=== PATIENT | female | born 1980 | race Hispanic/Latino ===

== ENCOUNTER 2025-02-06 21:57 | Emergency (ER) | payer BC ==
[~2025-02-06] VITALS: Ht 149.9 cm; Wt 77.6 kg
--- NOTE | 2025-02-06 22:09 | ERN ---
ED Note History of Present Illness Stated Complaint: C/O PAIN TO LEFT ARM, LEFT SHOULDER, BACK PAIN patient comes to the ED. because over that has last week. Since Monday. She has been having this rash on her left back shoulder and on her left arm. It is a vesicular rash. That has very painful to her she denies any chest pain or shortness of breath she had already went to [facility]. Where she said she had got an x- rays and ultrasounds. That has were normal withinnormal limits she has stilleen ableto use her arm since then Chief Complaint: Arm Swelling/Redness Time Seen by MD: 21:59 Allergies: Coded Allergies: Penicillins (Unverified Allergy, Unknown, 02/06/25) Past Medical History Past Medical History: Hypertension Surgical History: Cholecystectomy LMP: Jan 30, 2025 Review of System Dictation Constitutional: Negative for fever,chills, and weight loss Eyes: Negative for injury, pain,redness, and discharge ENT: Negative for injury,pain or swelling Cardiovascular: Negative for chest pain, palpitations, and edema Respiratory: Negative for shortness of breath, cough, and wheezing, Abdomen/GI: Negative for abdominal pain, nausea, vomiting, diarrhea, and constipation Back: Negative for injury and pain : Negative for injury, bleeding and discharge MS/Extremity: Negative for injury and deformity Skin: Negative for rash, and discoloration Neuro: Negative for headache, weakness, numbness, tingling, and seizure Psych: Negative for suicide ideation, homicidal ideation, and hallucinations Rash arm pain Initial Vital Sign VS Vital Signs Date Time Temp Pulse Resp B/P (MAP) Pulse Ox O2 Delivery O2 Flow Rate FiO2 02/06/25 22:00 98.2 108 20 140/94 98 Room Air Physical Exam Dictation General: awake, alert, NAD Head/Face: Normocephalic, atraumatic Eyes: PERRL, EOMI, vision at baseline ENT: oral cavity clear, TMs clear, no signs of infection Neck: Trachea midline, supple, no nuchal rigidity Cardiovascular: RRR, normal S1/S2, No MRGs, no JVD Respiratory: CTAB, no respiratory distress, No rales or wheezes Abdomen: Soft, non-tender, non-distended, normal bowel sounds, no guarding or rebound. Skin: Warm, dry, normal turgor, no rash MS/Extremity: Pulses equal, no cyanosis, neurovascular intact, FROM Neuro: COAx4, GCS 15, strength 5/5, CN 2-12 intact, normal cerebellar exam, normal gait, Psych: Normal behavior, mood, and affect normal Patient does have full range of motion strength sensation. Of both arms. That has no swelling on either the wrist the forearm they the bicep. That has no erythema or purple or purulence. That has only vesicular rash. In the left anterior forearm. Also a 5 x 5 cm vesicular rash. That has left posterior upper chest she is nontoxic appearing no acute distress Results (Laboratory/Radiology) Laboratory/Radiology Laboratory Tests Test 02/06/25 22:36 White Blood Count 4.4 K/uL (4.8-10.8) L Red Blood Count 4.16 MIL/uL (4.00-5.50) Hemoglobin 12.4 g/dL (12.0-16.0) Hematocrit 35.6 % (36-48) L Mean Corpuscular Volume 85.6 fL (79-99) Mean Corpuscular Hemoglobin 29.8 pg (27.0-33.0) Mean Corpuscular Hemoglobin Concent 34.8 g/dL (32.0-36.0) Red Cell Distribution Width 12.2 % (11.0-15.5) Platelet Count 210 K/uL (130-400) Mean Platelet Volume 10.6 fL (7.5-10.5) H Immature Granulocyte % (Auto) 0.2 % (0-1) Neutrophils (%) (Auto) 62.3 % (40.0-77.0) Lymphocytes (%) (Auto) 22.3 % (21.0-51.0) Monocytes (%) (Auto) 11.3 % (3.0-13.0) Eosinophils (%) (Auto) 3.2 % (0.0-8.0) Basophils (%) (Auto) 0.7 % (0.0-5.0) Neutrophils # (Auto) 2.7 K/uL (1.8-7.7) Lymphocytes # (Auto) 1.0 K/uL (1.0-4.8) Monocytes # (Auto) 0.5 K/uL (0.1-1.0) Eosinophils # (Auto) 0.14 K/uL (0.00-0.70) Basophils # (Auto) 0.03 K/uL (0.00-0.20) Absolute Immature Granulocyte (auto 0.01 K/uL (0-1) Nucleated Red Blood Cells 0.0 % (0.0-0.19) Troponin I High Sensitivity 6 ng/L (4-50) ED Course ED Course Orders Procedure Category Date Status Time Cbc With Differential LAB 02/06/25 Complete 22:04 Chest 1vw RAD 02/06/25 Taken 22:04 Morphine 4mg Syg PHA 02/06/25 Complete (Morphine 4mg Syg) 22:30 Ondansetron 4mg Inj PHA 02/06/25 Complete (Zofran 4mg Inj) 22:30 Troponin I High LAB 02/06/25 Complete Sensitivity 22:04 Basic Metabolic Panel LAB 02/06/25 In Process 22:04 12 Lead Ekg Tracing- EKG 02/06/25 Logged Technical 22:09 Current Medications Medications (Trade) Dose Ordered Sig/Leticia Route PRN Reason Start Time Stop Time Status Last Admin Dose Admin Morphine Sulfate (morPHINE 4MG SYG) 4 mg ONCE ONCE IVP 02/06/25 22:30 02/06/25 22:31 DC 02/06/25 22:56 Ondansetron HCl (zoFRAN 4MG INJ) 4 mg ONCE ONCE IVP 02/06/25 22:30 02/06/25 22:31 DC 02/06/25 22:56 Vital Signs Date Time Temp Pulse Resp B/P (MAP) Pulse Ox O2 Delivery O2 Flow Rate FiO2 02/06/25 22:00 98.2 108 20 140/94 98 Room Air Medical Decision Making MDM MDM: Differential diagnosis: Rationale: Tests considered and ordered secondary to shared decision making include: Previous outside records reviewed: Old ER visits. Risk of complication and/or morbidity or mortality of patient management: None Medications-Per medication reconciliation Need for hospitalization: Patient does not meet criteria for hospitalization. Need for emergency major/minor surgery: No There are no social concerns with this patient. Prescription drug management Prescriptions will include symptomatic care Patient's prior external medical records from other ER visits were reviewed by me as indicated. Prior testing and results from previous visits were reviewed. Prior tests were taken into account with medical decision making and resource utilization, independent historian/historians were used to obtain complete medical history. I independently interpreted the test that were performed, results were reviewed by me and considered findings on radiology if ordered. Medical management and examination interpretation discussions were had by me with other qualified healthcare professionals as indicated for the patient's care. No clinical signs of DVT additionally patient also and that has last days had had ultrasound of her arm. And been worked up. Again additionally given this fascicular rash. And that has left dermatomal that has left upper back back and then on her left arm. That has consistent with that has zoster shingles. Patient says she has been under a lot of stressors in the I told him do some blood work make sure that has not cardiac abnormalities. And pain medications no signs of cellulitis either DX & DISP Disposition: Discharge Departure Impression: Primary Impression: Shingles Condition: Stable Scripts Prednisone (Prednisone) 10 Mg Tab.ds.pk 10 MG PO BID for 5 Days, #10 Prov: KEVIN ANN MD 02/06/25 Acyclovir (Acyclovir) 200 Mg Capsule 200 MG PO 5X/DAY for 5 Days, #25 CAP Prov: KEVIN ANN MD 02/06/25 KEVIN ANN MD Feb 06, 2025 22:09
[2025-02-06 22:57] LABS: IMMATURE GRANULOCYTE ABSOLUTE 0.01 K/uL (0-1); NUCLEATED RED BLOOD CELLS 0.0 % (0.0-0.19); PLATELET COUNT (AUTO) 210 K/uL (130-400); RED BLOOD CELL COUNT(AUTO) 4.16 MIL/uL (4.00-5.50); RED CELL DISTRIBUTION WIDTH 12.2 % (11.0-15.5); WHITE BLOOD COUNT (AUTO) 4.4 K/uL (4.8-10.8)
[2025-02-06] MEDS ORDERED: PRED10TA23 PO (23:21)
[2025-02-06] MEDS ORDERED: ACYC-61 PO (23:21)
[2025-02-06 23:22] LABS: CREATININE 0.6 mg/dL (0.5-1.0); GLOMERULAR FILTR. RATE CALC 113.0 mL/min (>90); GLUCOSE,RANDOM 119.0 mg/dL (70-105); SODIUM SERUM 134.0 mmol/L (136-145); UREA NITROGEN, BLOOD 13.0 mg/dL (7-18)
--- NOTE | 2025-02-06 23:22 | HMCIMG ---
EXAM: CR Chest, 1 view CLINICAL HISTORY: Pain. COMPARISON: None provided. FINDINGS: The lungs show no infiltrates or other acute findings. No pleural effusion or pneumothorax. The cardiomediastinal silhouette is within normal limits. No acute osseous abnormality. IMPRESSION: No acute cardiopulmonary process is evident. /[place]
[2025-02-06 23:33] VITALS: BP 132/56; PULSE 86; RESP 18; TEMP 98.6; O2SAT 99
--- NOTE | 2025-02-07 02:38 | EKG ---
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
== END 2025-02-06 23:40 | disposition home or self-care (01) ==
LOC: EDH 21:57
DX: B02.9 Zoster without complications (principal); I10 Essential (primary) hypertension; Z88.0 Allergy status to penicillin; Z90.49 Acquired absence of other specified parts of digestive tract
CPT/HCPCS: 99284; 96374; 71045; 96375; 84484; 80048; 85025; 36415; 93005; J2405; J2270

== ENCOUNTER 2025-02-25 10:09 | Emergency (ER) | payer BC ==
[~2025-02-25] VITALS: Ht 149.9 cm; Wt 76.7 kg
[~2025-02-25 10:09] MED LIST: ACYC-61 PO; PRED10TA23 PO
[2025-02-25 10:11] VITALS: TEMP 97.6
--- NOTE | 2025-02-25 10:25 | ERN ---
General Chief Complaint: Chest Pain Stated Complaint: CP Time Seen by MD: 10:14 Time Seen by Midlevel: 10:14 Source: patient History of Present Illness Initial Comments 45-year-old female who presents to the emergency department due to chest pain onset three days ago. Patient reports nausea but denies any shortness of breath, abdominal pain, headache, fevers or further associated symptoms. Patient reports she was seen here two weeks ago and diagnosed with shingles. Denies any rash or lesions to the chest/breast. PMHx HTN, TIA Allergies: Coded Allergies: Penicillins (Unverified Allergy, Unknown, 02/06/25) Home Meds Active Scripts Prednisone (Prednisone) 10 Mg Tab.ds.pk, 10 MG PO BID for 5 Days, #10 Prov:KEVIN ANN MD 02/06/25 Acyclovir (Acyclovir) 200 Mg Capsule, 200 MG PO 5X/DAY for 5 Days, #25 CAP Prov:KEVIN ANN MD 02/06/25 Past Medical History Past Medical History: CVA, Hypertension, Other Medical History Other: shingles Past Surgical History: Cholecystectomy ROS Dictation Constitutional: Negative for fever,chills, and weight loss Eyes: Negative for injury, pain,redness, and discharge ENT: Negative for injury,pain or swelling Cardiovascular: Positive chest pain Negative for palpitations, and edema Respiratory: Negative for shortness of breath, cough, and wheezing, Abdomen/GI: Positive for nausea Negative for abdominal pain, vomiting, diarrhea, and constipation Back: Negative for injury and pain : Negative for painful urination, bleeding or discharge MS/Extremity: Negative for injury and deformity Skin: Negative for rash, and discoloration Neuro: Negative for headache, weakness, numbness, tingling, and seizure Psych: Negative for suicide ideation, homicidal ideation, and hallucinations Physical Exam Physical Exam Dictation General: awake, alert, no acute distress Head/Face: Normocephalic, atraumatic Eyes: PERRL, EOMI, normal conjunctiva ENT: oral cavity clear, oral mucosa moist Neck: Supple, normal range of motion Cardiovascular: RRR, normal S1/S2 Respiratory: CTAB, no respiratory distress, no rales or wheezes Abdomen: Soft, non-tender, non-distended, no guarding or rebound. Skin: Warm, dry, normal turgor, mild rash noted on the medial aspect left arm and upper back consistent with healing shingles, no rash or lesions noted around the left breast/chest MS/Extremity: Pulses equal, no cyanosis, neurovascular intact, FROM Neuro: COAx4, GCS 15, strength 5/5, CN 2-12 intact, normal cerebellar exam, normal gait Psych: Normal behavior, mood, and affect normal Results Laboratory and Microbiology Lab and Micro Result Laboratory Tests Test 02/25/25 10:32 02/25/25 11:30 02/25/25 11:37 White Blood Count 6.3 K/uL (4.8-10.8) Red Blood Count 4.21 MIL/uL (4.00-5.50) Hemoglobin 12.5 g/dL (12.0-16.0) Hematocrit 37.0 % (36-48) Mean Corpuscular Volume 87.9 fL (79-99) Mean Corpuscular Hemoglobin 29.7 pg (27.0-33.0) Mean Corpuscular Hemoglobin Concent 33.8 g/dL (32.0-36.0) Red Cell Distribution Width 12.3 % (11.0-15.5) Platelet Count 254 K/uL (130-400) Mean Platelet Volume 10.2 fL (7.5-10.5) Immature Granulocyte % (Auto) 0.3 % (0-1) Neutrophils (%) (Auto) 54.1 % (40.0-77.0) Lymphocytes (%) (Auto) 33.0 % (21.0-51.0) Monocytes (%) (Auto) 9.1 % (3.0-13.0) Eosinophils (%) (Auto) 2.7 % (0.0-8.0) Basophils (%) (Auto) 0.8 % (0.0-5.0) Neutrophils # (Auto) 3.4 K/uL (1.8-7.7) Lymphocytes # (Auto) 2.1 K/uL (1.0-4.8) Monocytes # (Auto) 0.6 K/uL (0.1-1.0) Eosinophils # (Auto) 0.17 K/uL (0.00-0.70) Basophils # (Auto) 0.05 K/uL (0.00-0.20) Absolute Immature Granulocyte (auto 0.02 K/uL (0-1) Nucleated Red Blood Cells 0.0 % (0.0-0.19) Sodium Level 140 mmol/L (136-145) Potassium Level 3.4 mmol/L (3.5-5.1) L Chloride Level 103 mmol/L (101-111) Carbon Dioxide Level 28 mmol/L (21-32) Blood Urea Nitrogen 13 mg/dL (7-18) Creatinine 0.5 mg/dL (0.5-1.0) Glomerular Filtration Rate Calc 117 mL/min (>90) Random Glucose 120 mg/dL (70-105) H Total Calcium 8.4 mg/dL (8.5-10.1) L Troponin I High Sensitivity < 4 ng/L (4-50) L < 4 ng/L (4-50) L Urine Color LIGHT-YELLOW (YELLOW) Urine Appearance CLEAR (CLEAR) Urine pH 7.0 (5.0-8.0) Urine Specific [place] 1.018 (1.001-1.031) Urine Protein NEGATIVE mg/dL (NEGATIVE) Urine Glucose (UA) 70 mg/dL (NEGATIVE) H Urine Ketones NEGATIVE mg/dL (NEGATIVE) Urine Occult Blood +- (TRACE) (NEGATIVE) H Urine Nitrate NEGATIVE (NEGATIVE) Urine Bilirubin NEGATIVE mg/dL (NEGATIVE) Urine Urobilinogen 0.2 mg/dL (0.2-1.0) Urine Leukocyte Esterase NEGATIVE [place]/uL Urine RBC 2-5 /HPF (0-1) H Urine WBC 2-5 /HPF (0-1) H Urine Squamous Epithelial Cells MOD /HPF (0-2) Urine Bacteria None /HPF (None Seen) Labs Reviewed?: Yes EKG/XRAY/US/CT/MRI EKG Comment Date: 02/25/2025 Time: 10:14 a.m. Rate: 90 EKG interpretation: Sinus rhythm, no STEMI Reviewed by ED Attending X-RAY Comment REASON: CP ORDERING PHYSICIAN: LESLEY VASQUEZ PAC PROCEDURE: CXR1VW - CHEST 1VW EXAM: CR Chest, 1 View. CLINICAL HISTORY: CP COMPARISON: None provided. FINDINGS: LUNGS: There is no mass, infiltrate, or acute pulmonary abnormality. PLEURAL SPACES: No evidence of pleural effusion or pneumothorax. MEDIASTINUM: The cardiomediastinal silhouette is within normal limits. BONES: No acute osseous abnormality. IMPRESSION: No acute cardiopulmonary pathology is evident. /[place] DICTATED BY: AZUL NICHOLSON MD DATE: 02/25/25 1158 MDM MDM: Differential diagnosis: Musculoskeletal chest pain, VT, shingles, Rationale: 45-year-old female who presents to the emergency department due to chest pain onset three days ago. Patient reports nausea but denies any shortness of breath, abdominal pain, headache, fevers or further associated symptoms. Patient reports she was seen here two weeks ago and diagnosed with shingles. Denies any rash or lesions to the chest/breast. PMHx HTN, TIA Per physical examination in the heating rash consistent with shingles noted on the left side upper back and medial aspect of the left arm no rash or lesions noted on the chest. Labs obtained CBC within normal limits. Troponin within normal limits x2. UA negative for urinary tract infection. Chest x-rays obtained with no acute cardiopulmonary findings. Patient was educated on findings and results. Ketorolac administered in the ED. Advised to follow up w ith PCP. Return to the emergency department if any worsening symptoms. Patient verbalized understanding. Patient stable for discharge. There are no social concerns with this patient. I independently interpreted the test that were performed, results were reviewed by me and considered findings on radiology if ordered. Medical management and examination interpretation discussions were had by me with other qualified healthcare professionals as indicated for the patient's care. ED Course Orders Procedure Category Date Status Time Cbc With Differential LAB 02/25/25 Complete 10:14 Basic Metabolic Panel LAB 02/25/25 Complete 10:14 Urinalysis LAB 02/25/25 Complete W/Microscopic 10:14 Troponin I High LAB 02/25/25 Complete Sensitivity 10:14 12 Lead Ekg Tracing- EKG 02/25/25 Complete Technical 10:14 Chest 1vw RAD 02/25/25 Resulted 10:14 Troponin I High LAB 02/25/25 Complete Sensitivity 11:28 Ketorolac PHA 02/25/25 Complete Tromethamine 15mg/Ml 12:00 Current Medications Medications (Trade) Dose Ordered Sig/Leticia Route PRN Reason Start Time Stop Time Status Last Admin Dose Admin Ketorolac Tromethamine (toRADol) 15 mg ONCE ONCE IM 02/25/25 12:00 02/25/25 12:01 DC 02/25/25 12:08 Vital Signs Date Time Temp Pulse Resp B/P (MAP) Pulse Ox O2 Delivery O2 Flow Rate FiO2 02/25/25 12:07 61 20 124/75 99 Room Air* 0 21 02/25/25 10:47 97 20 139/93 97 Room Air* 0 21 02/25/25 10:11 97.5 99 18 165/104 99 Room Air 0 02/25/25 10:11 97.5 99 18 165/104 99 Room Air* 0 21 DX & DISP Disposition: Discharge Departure Impression: Primary Impression: Non-cardiac chest pain Condition: Stable Additional Instructions: Discharge home. Rest. Follow up with primary care DrJeronimo in 24 hours. Return to the ER for any acute changes or worsening symptoms. If any medications were prescribed take as directed. Okay to continue home medications unless otherwise discussed during your visit in the emergency room today. Patient was also advised to follow-up with primary care physician in 1 to 2 days for continued monitoring. Referrals: JEANNETTE DONIS (PCP) I performed the substantive portion of the visit. I have reviewed and personally made and approve the management plan that is documented in the notes by myself or the DANNIE. I acknowledge full responsibility for the patient's management plan. LESLEY VASQUEZ PAC Feb 25, 2025 10:25
[2025-02-25 10:37] LABS: IMMATURE GRANULOCYTE ABSOLUTE 0.02 K/uL (0-1); NUCLEATED RED BLOOD CELLS 0.0 % (0.0-0.19); PLATELET COUNT (AUTO) 254 K/uL (130-400); RED BLOOD CELL COUNT(AUTO) 4.21 MIL/uL (4.00-5.50); RED CELL DISTRIBUTION WIDTH 12.3 % (11.0-15.5); WHITE BLOOD COUNT (AUTO) 6.3 K/uL (4.8-10.8)
[2025-02-25 10:44] LABS: CREATININE 0.5 mg/dL (0.5-1.0); GLOMERULAR FILTR. RATE CALC 117.0 mL/min (>90); GLUCOSE,RANDOM 120.0 mg/dL (70-105); SODIUM SERUM 140.0 mmol/L (136-145); UREA NITROGEN, BLOOD 13.0 mg/dL (7-18)
--- NOTE | 2025-02-25 10:47 | EKG ---
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
--- NOTE | 2025-02-25 10:59 | HMCIMG ---
EXAM: CR Chest, 1 View. CLINICAL HISTORY: CP COMPARISON: None provided. FINDINGS: LUNGS: There is no mass, infiltrate, or acute pulmonary abnormality. PLEURAL SPACES: No evidence of pleural effusion or pneumothorax. MEDIASTINUM: The cardiomediastinal silhouette is within normal limits. BONES: No acute osseous abnormality. IMPRESSION: No acute cardiopulmonary pathology is evident. /[place]
[2025-02-25 11:48] LABS: APPEARANCE,URINE CLEAR (CLEAR); GLUCOSE, URINE (UA) 70 mg/dL (NEGATIVE); LEUKOCYTE ESTERASE ,URINE NEGATIVE Leu/uL (NEGATIVE); NITRATE,URINE NEGATIVE (NEGATIVE); OCCULT BLOOD,URINE +- (TRACE) (NEGATIVE)
[2025-02-25 11:58] LABS: SQUAMOUS EPITHELIAL CELL,UR MOD /HPF (0-2)
[2025-02-25 12:07] VITALS: BP 124/75; PULSE 61; RESP 20; O2SAT 99
== END 2025-02-25 12:39 | disposition home or self-care (01) ==
LOC: EDH 10:09
DX: R07.89 Other chest pain (principal); I10 Essential (primary) hypertension; Z79.52 Long term (current) use of systemic steroids; Z86.73 Personal history of transient ischemic attack (TIA), and cerebral infarction without residual deficits; Z88.0 Allergy status to penicillin; Z90.49 Acquired absence of other specified parts of digestive tract
CPT/HCPCS: 99284; 71045; 84484 ×2; 80048; 85025; 81001; 36415; 96372; 93005; J1885; 99285